=== PATIENT | male | born 1945 | race Caucasian/White ===

== ENCOUNTER 2017-12-01 14:59 | Emergency (ER) | payer OTHER ==
[2017-12-01 15:37] LABS: ANION GAP 8 (6-14); BLOOD UREA NITROGEN 18 mg/dL (8-26); BUN/CREATININE RATIO 26 (6-20); CALCIUM 8.8 mg/dL (8.5-10.1); CARBON DIOXIDE 30 mmol/L (21-32); CHLORIDE 101 mmol/L (98-107); CREATININE 0.7 mg/dL (0.7-1.3); GFR 110.5; GLUCOSE 95 mg/dL (70-99); SODIUM 139 mmol/L (136-145)
[2017-12-01 15:42] LABS: ALK PHOS 60 U/L (46-116); ALT (SGPT) 93 U/L (16-63); AST (SGOT) 45 U/L (15-37); LIPASE 153 U/L (73-393); TOTAL PROTEIN 7.9 g/dL (6.4-8.2)
[2017-12-01 15:46] LABS: TROPONINI < 0.017 ng/mL (0.000-0.055)
[2017-12-01 16:12] LABS: BASO % 0 % (0-3); EOS # 0.1 x10^3/uL (0.0-0.7); EOS % 3 % (0-3); HEMATOCRIT 39.4 % (39.0-53.0); HEMOGLOBIN 13.9 g/dL (13.0-17.5); LYMPH # 1.1 x10^3/uL (1.0-4.8); LYMPH % 22 % (24-48); MEAN CORPUSCULAR HEMOGLOBIN 35 pg (25-35); MEAN CORPUSCULAR HGB CONC 35 g/dL (31-37); MEAN CORPUSCULAR VOLUME 98 fL (79-100); MONO % 20 % (0-9); NEUT # 2.7 x10^3uL (1.8-7.7); NEUT % 55 % (31-73); PLATELET COUNT 127 x10^3/uL (140-400); RED BLOOD COUNT 4.01 x10^6/uL (4.30-5.70); RED CELL DISTRIBUTION WIDTH 12.3 % (11.5-14.5); WHITE BLOOD COUNT 4.8 x10^3/uL (4.0-11.0)
[2017-12-01 16:13] LABS: ADD MAN DIFF? YES
[2017-12-01 16:33] LABS: % BANDS 8 % (0-9); % BASOS 2 % (0-3); % EOS 3 % (0-5); % MONOS 17 % (0-10); % SEGS 50 % (35-66)
[2017-12-01 16:34] LABS: PLT ESTIMATE ADEQUATE (ADEQUATE)
[2017-12-01 16:35] LABS: % ATYL 1 % (0-0); % LYMPHS 19 % (24-48)
[2017-12-01 16:36] LABS: PLATELET CLUMP PRESENT
[2017-12-01] MEDS: DIPHTH,PERTUSS(ACELL),TET TOX 0.5 ML DISP.SYRIN. VAX IM (16:57)
[2017-12-01 17:48] LABS: BILIRUBIN,URINE NEGATIVE (NEG); COLOR,URINE YELLOW; GLUCOSE,URINE NEGATIVE (NEG); NITRITE,URINE NEGATIVE (NEG); PH,URINE 7.5; PROTEIN,URINE NEGATIVE (NEG-TRACE)
[2017-12-01 17:57] LABS: AMORPHOUS SEDIMENT,UR PRESENT /HPF; BACTERIA,URINE 0 /HPF (0-FEW); CLARITY,URINE HAZY; RBC,URINE 0 /HPF (0-2); WBC,URINE 0 /HPF (0-4)
== END 2017-12-01 20:33 | disposition short-term general hospital (02) ==
LOC: ER 14:59
DX: S62.521B Displaced fracture of distal phalanx of right thumb, initial encounter for open fracture (principal); S01.01XA Laceration without foreign body of scalp, initial encounter; E78.00 Pure hypercholesterolemia, unspecified; I10 Essential (primary) hypertension; R42 Dizziness and giddiness; Z79.82 Long term (current) use of aspirin; W18.39XA Other fall on same level, initial encounter; Y93.89 Activity, other specified; Y99.8 Other external cause status; Y92.89 Other specified places as the place of occurrence of the external cause
CPT/HCPCS: 12014; 36415; 70450; 71045; 73140; 80053; 81001; 83690; 84484; 85007; 85025; 90471; 90715; 93005; 96365; 99285-25; J0690